=== PATIENT | male | born 1935 | race Asian ===

== ENCOUNTER 2016-09-15 07:12 | Inpatient (IN) | payer MEDICARE ==
[~2016-09-15] VITALS: Ht 177.8 cm; Wt 83.5 kg
[2016-09-15] VITALS (13 sets, daily range): BP systolic 87–149; BP diastolic 28–95
[2016-09-15] MEDS ORDERED: METO-304 PO (07:45)
[2016-09-15] MEDS ORDERED: HYDR25TA4 PO (07:45)
[2016-09-15] MEDS ORDERED: RIVA10TA PO (07:45)
[2016-09-15] MEDS ORDERED: ACET1TAB12 PO (07:45)
[2016-09-15] MEDS ORDERED: TAMS0.4C34 PO (07:45)
[2016-09-15] MEDS ORDERED: FAMOTIDINE. 20 MG/2 ML VIAL IV ONE ×2 (07:45→08:00)
[2016-09-15] MEDS ORDERED: TIMO5DRO31 (07:45)
--- NOTE | 2016-09-15 07:47 | NUR ---
PT IS IN ROOM #1B. DR HAMILTON EVALUATED THE PT.
[2016-09-15 08:09] LABS: BASOPHILS % (AUTO) 0.1 % (0.0-2.0); EOSINOPHILS # (AUTO) 0.1 K/uL (0.0-0.7); EOSINOPHILS % (AUTO) 0.6 % (0.0-7.0); HEMOGLOBIN 15.4 G/DL (14.0-18.0); LYMPHOCYTES % (AUTO) 11.6 % (20.5-51.5); MEAN CORPUSCULAR HEMOGLOBIN 29.8 UUG (27.0-31.0); MEAN CORPUSCULAR HGB CONC 34 g/dL (32.0-37.0); MONOCYTES # (AUTO) 0.7 K/UL (0.1-1.30); MONOCYTES % (AUTO) 7.7 % (0.0-11.0); PLATELET COUNT (AUTO) 160 K/UL (150-450); RED BLOOD CELL COUNT(AUTO) 5.17 MIL/UL (4.7-6.1); WHITE BLOOD COUNT (AUTO) 8.8 K/UL (4.0-11.2)
[2016-09-15 08:25] LABS: ALANINE AMINOTRANSFERASE 17 U/L (16-63); ALKALINE PHOSPHATASE 53 U/L (50-136); ASPARTATE AMINOTRANSFERASE 29 U/L (15-37); BILIRUBIN,DIRECT 0.6 mg/dL (0.0-0.2); BILIRUBIN,TOTAL 2.2 mg/dL (0.2-1.0); CARBON DIOXIDE 21 mmol/L (21-32); CREATININE 0.9 mg/dL (0.6-1.3); GLUCOSE 128 mg/dL (74-106); TOTAL PROTEIN, SERUM 6.5 g/dL (6.4-8.2); UREA NITROGEN, BLOOD 23 mg/dL (7-18)
[2016-09-15 08:29] LABS: POTASSIUM 4.3 mmol/L (3.5-5.1)
[2016-09-15 08:33] LABS: CHLORIDE 75 mmol/L (98-107)
[2016-09-15] MEDS ORDERED: IV NS 1000 ML 1,000 ML IV ONE (09:00)
[2016-09-15] MEDS ORDERED: IV SODIUM CHLORIDE 3% 500 ML IV ONE (09:45)
[2016-09-15] MEDS ORDERED: IV SODIUM CHLORIDE 3% 500 ML IV SCH ×3 (09:45→18:35)
--- NOTE | 2016-09-15 10:11 | NUR ---
PT WAS RE-EVALUATED BY DR HAMILTON. REPORT WAS GIVEN TO ASSOCIATE RESEARCH SCIENTIST . PT WAS TRANSFERED TO CCU ROOM #4.
[2016-09-15] MEDS ORDERED: LIDOCAINE 2% (UROJET) 10 ML JELLY MM PRN (10:30)
[2016-09-15 10:44] LABS: *BILIRUBIN,URIN NEGATIVE (NEGATIVE); *BLOOD, URINE Trace-intact (NEGATIVE); *CLARITY,URINE CLEAR (CLEAR); *COLOR,URINE YELLOW (YELLOW); *KETONES,URINE 1+ (NEGATIVE); *PROTEIN,URINE 1+ (NEGATIVE); LEUKOCYTE ESTERASE ,URINE NEGATIVE (NEGATIVE); NITRITE, URINE NEGATIVE (NEGATIVE)
--- NOTE | 2016-09-15 11:01 | NUR ---
At this time patient brought in from ER. awake alert restless extremely agitated. and with IV to left hand infiltrated and non-functioning. Attempts to establish a new line done at this time and after x2 attempts a G20 to RFA inserted.
[2016-09-15 11:02] LABS: UGLUCOSE 1+ (NEGATIVE)
[2016-09-15 11:05] LABS: BACTERIA,URINE FEW /HPF (NONE SEEN); SQUAMOUS EPITHELIAL CELL,UR FEW /HPF (NONE SEEN); WBC,URINE 0-3 /HPF (0-3)
--- NOTE | 2016-09-15 11:15 | NUR ---
Dr. Vernon called to be notified of pt's admission and condition. Orders received. Pt's daughter Ms. Velazquez at bedside all the time.
[2016-09-15] MEDS: LORAZEPAM 2 MG/1 ML VIAL IV PRN ×2 (11:56→19:49)
[2016-09-15] MEDS ORDERED: ONDANSETRON 4 MG/2 ML VIAL IV PRN (12:00)
[2016-09-15] MEDS ORDERED: ACETAMINOPHEN 325 MG TABLET PO PRN (12:00)
--- NOTE | 2016-09-15 12:08 | NUR ---
At this time Dr. Vernon called for clarification orders, and to informed him of pt's daughter desire to have patient to be DNR, DNI.
[2016-09-15] MEDS ORDERED: IV SODIUM CHLORIDE 3% 500 ML IV PRN (12:15)
[2016-09-15] MEDS: MORPHINE SULFATE 2 MG/1 ML DISP.SYRIN IV PRN ×2 (15:36→20:18)
[2016-09-15 16:35] LABS: CARBON DIOXIDE 22 mmol/L (21-32); CREATININE 0.9 mg/dL (0.6-1.3); GLUCOSE 94 mg/dL (74-106); POTASSIUM 4.2 mmol/L (3.5-5.1); UREA NITROGEN, BLOOD 22 mg/dL (7-18)
[2016-09-15 16:40] LABS: CHLORIDE 80 mmol/L (98-107)
--- NOTE | 2016-09-15 17:00 | NUR ---
A call from Dr. Vernon and orders to continue with Na chloride hypertonic solution 3% for another 6 hours received.
--- NOTE | 2016-09-15 17:33 | NUR ---
A call to Dr. Vernon to notify him that pt's daughter Ms. Kimble Kendra in the unit and wanted to be updated by Him. A call back from and Jessica Lamin informed of Dr. CABALLERO. She stated "Ill wait for him".
[2016-09-15] MEDS: RIVAROXABAN 10 MG TABLET PO SCH (17:52)
--- NOTE | 2016-09-15 18:01 | NUR ---
Patient unable to swallow xarelto daughter at bedside. Patient drink the water and ate ice dhips but refuse to drink pill.
--- NOTE | 2016-09-15 19:25 | NUR ---
RECEIVED PT; A/O X1 CONFUSED AND RESTLESS; ATTEMPTING TO CLIMB OUT OF BED; PT ON CARDIAC MONITORING SHOWING AFIB WITH RVR; PT ON 2LNC O2 THERAPY ;SPO2>93%. PT HAS A FC DRAINING CHRISTOS URINE; PT RECEIVING 3% HYPERTONIC SOLUTION AT 40 ML/HR. ABRASION ON THE RT ELBOW AND PURPLE BRUISE ON THE RT FLANK. PT ON AIR MATTRESS, DEFLATED AT THIS TIME PER FALL PRECAUTIONS.
--- NOTE | 2016-09-15 20:45 | NUR ---
PT APPEARS CALM AND RESTING AT THIS TIME; MITTENS MAINTAINED FOR SAFETY; AIR MATTRESS REINFLATED FOR SKIN PROTECTION; FALL PRECAUTIONS OBSERVED
[2016-09-15] MEDS: TAMSULOSIN HCL 0.4 MG CAP.SR.24H PO SCH (21:00)
[2016-09-15] MEDS: DOCUSATE SODIUM 100 MG CAPSULE PO SCH (21:00)
[2016-09-15 21:35] LABS: CARBON DIOXIDE 24 mmol/L (21-32); CHLORIDE 84 mmol/L (98-107); CREATININE 0.9 mg/dL (0.6-1.3); GLUCOSE 93 mg/dL (74-106); POTASSIUM 3.6 mmol/L (3.5-5.1); UREA NITROGEN, BLOOD 20 mg/dL (7-18)
[2016-09-16] VITALS (20 sets, daily range): BP systolic 85–140; BP diastolic 58–107
[2016-09-16] MEDS: IV NS 1000 ML 1,000 ML IV PRN ×2 (00:17→17:24)
--- NOTE | 2016-09-16 05:54 | NUR ---
PT RESTED WELL THROUGHOUT NIGHT; NO BOUTS OF RESTLESSNESS AND AGITATION OBSERVED
[2016-09-16 05:57] LABS: BASOPHILS % (AUTO) 0.3 % (0.0-2.0); EOSINOPHILS # (AUTO) 0.1 K/uL (0.0-0.7); EOSINOPHILS % (AUTO) 1.1 % (0.0-7.0); HEMOGLOBIN 16.9 G/DL (14.0-18.0); MEAN CORPUSCULAR HEMOGLOBIN 31.5 UUG (27.0-31.0); MEAN CORPUSCULAR HGB CONC 34 g/dL (32.0-37.0); MEAN CORPUSCULAR VOLUME 91.7 FL (82.0-92.0); MONOCYTES # (AUTO) 0.9 K/UL (0.1-1.30); MONOCYTES % (AUTO) 11.6 % (0.0-11.0); PLATELET COUNT (AUTO) 161 K/UL (150-450); RED BLOOD CELL COUNT(AUTO) 5.35 MIL/UL (4.7-6.1)
[2016-09-16 06:05] LABS: IRON, SERUM 232 ug/dL (50-175)
[2016-09-16 06:19] LABS: ALANINE AMINOTRANSFERASE 29 U/L (16-63); ALKALINE PHOSPHATASE 57 U/L (50-136); ASPARTATE AMINOTRANSFERASE 51 U/L (15-37); BILIRUBIN,TOTAL 2.3 mg/dL (0.2-1.0); CARBON DIOXIDE 27 mmol/L (21-32); CHLORIDE 89 mmol/L (98-107); CREATININE 1.1 mg/dL (0.6-1.3); GLUCOSE 77 mg/dL (74-106); PHOSPHOROUS 3.3 mg/dL (2.5-4.9); TOTAL PROTEIN, SERUM 6.8 g/dL (6.4-8.2); UREA NITROGEN, BLOOD 17 mg/dL (7-18); URIC ACID 3.7 mg/dL (3.5-7.2)
[2016-09-16 08:46] LABS: THYROID STIMULATING HORMONE 2.147 mIU/mL (0.358-3.740)
[2016-09-16] MEDS: PANTOPRAZOLE SODIUM 40 MG TABLET.DR PO SCH (08:48)
[2016-09-16] MEDS: MORPHINE SULFATE 2 MG/1 ML DISP.SYRIN IV PRN (14:52)
[2016-09-16 15:25] LABS: CARBON DIOXIDE 23 mmol/L (21-32); CHLORIDE 91 mmol/L (98-107); GLUCOSE 118 mg/dL (74-106); POTASSIUM 3.8 mmol/L (3.5-5.1); UREA NITROGEN, BLOOD 19 mg/dL (7-18)
[2016-09-16] MEDS: RIVAROXABAN 10 MG TABLET PO SCH (18:18)
--- NOTE | 2016-09-16 19:30 | NUR ---
Report received. Patient awake with limited verbal responses. Trying to get out of bed. Confused but cooperative; urinal offered. No void. Reoriented and placed on fall precautions. Bed alarm on, side rails up and frequent monitoring. NAD noted. Assessment completed. Addendum: 09/16/16 at 1074 by DMITRIY BRUNNER RN Amended: Links added.
--- NOTE | 2016-09-16 20:00 | NUR ---
Bilateral wrist restraints removed. Patient calm, reoriented PRN. C/o being cold. Blankets provided. Will continue to monitor closely. Addendum: 09/16/16 at 2302 by DMITRIY BRUNNER RN Amended: Links added.
--- NOTE | 2016-09-16 21:00 | NUR ---
Mildly restless, urinal offered. Not able to void while in bed. Assisted up at side of bed. Voided twila slight pink urine. Back to bed without problems. Addendum: 09/16/16 at 2305 by DMITRIY BRUNNER RN Amended: Links added.
[2016-09-16] MEDS: TAMSULOSIN HCL 0.4 MG CAP.SR.24H PO SCH (21:04)
[2016-09-16] MEDS: DOCUSATE SODIUM 100 MG CAPSULE PO SCH (21:04)
--- NOTE | 2016-09-16 21:30 | NUR ---
O2 dc'd. Sat on room air is above 94%. Addendum: 09/16/16 at 5593 by DMITRIY BRUNNER RN Amended: Links added.
--- NOTE | 2016-09-16 22:35 | NUR ---
Patient will transferred to 226. Message left to patient's daughter re: transfer and room number. Addendum: 09/16/16 at 2250 by DMITRIY BRUNNER RN Amended: Links added. Addendum: 09/16/16 at 2254 by DMITRIY BRUNNER RN Amended: Links added.
[2016-09-17] VITALS: BP 143/95
--- NOTE | 2016-09-17 | NUR ---
Mildly restless again; trying to get out of bed. Urinal offered. Assist up at side of bed; voided 300 ml of twila pink urine. Back to bed. Am care provided. Patient cooperative.
--- NOTE | 2016-09-17 01:00 | NUR ---
Patient sleeping. O2 sat maintaining above 94% on room air. Transferred to 226 per bed. NAD noted.
--- NOTE | 2016-09-17 01:25 | NUR ---
Report given to Tami AVALOS.
--- NOTE | 2016-09-17 01:35 | NUR ---
RECEIVED PATIENT FROM CCU. PATIENT IS LAYING COMFORTABLY IN BED. GREEN[place] SPEAKING WITH LITTLE [place]. ABLE TO NOD YES AND NO TO NEEDS. NO ACUTE DISTRESS NOTED. TELE SR. SAFETY INITIATED. CALL LIGHT WITHIN REACH.
[2016-09-17] MEDS: PANTOPRAZOLE SODIUM 40 MG TABLET.DR PO SCH (06:11)
[2016-09-17 06:35] VITALS: BP 158/98
[2016-09-17 07:08] LABS: BASOPHILS % (AUTO) 0.1 % (0.0-2.0); EOSINOPHILS # (AUTO) 0.1 K/uL (0.0-0.7); EOSINOPHILS % (AUTO) 1.3 % (0.0-7.0); HEMATOCRIT 45.8 % (40-50); HEMOGLOBIN 15.5 G/DL (14.0-18.0); LYMPHOCYTES # (AUTO) 1.9 K/UL (0.8-4.8); LYMPHOCYTES % (AUTO) 23.8 % (20.5-51.5); MEAN CORPUSCULAR HEMOGLOBIN 31.1 UUG (27.0-31.0); MEAN CORPUSCULAR HGB CONC 34 g/dL (32.0-37.0); MEAN CORPUSCULAR VOLUME 91.5 FL (82.0-92.0); MONOCYTES # (AUTO) 0.8 K/UL (0.1-1.30); MONOCYTES % (AUTO) 10.7 % (0.0-11.0); NEUTROPHILS % (AUTO) 64.1 % (38.5-71.5); PLATELET COUNT (AUTO) 154 K/UL (150-450); WHITE BLOOD COUNT (AUTO) 7.8 K/UL (4.0-11.2)
--- NOTE | 2016-09-17 07:30 | NUR ---
NO CHANGES T/O THE REST OF MY SHIFT. ALL COMFORT AND SAFETY MEASURES PROVIDED. NO ACUTE DISTRESS NOTED. ALL NEEDS MET. CALL LIGHT WITHIN REACH.
[2016-09-17 08:29] LABS: ALANINE AMINOTRANSFERASE 26 U/L (16-63); ALKALINE PHOSPHATASE 50 U/L (50-136); ASPARTATE AMINOTRANSFERASE 31 U/L (15-37); BILIRUBIN,TOTAL 1.6 mg/dL (0.2-1.0); CARBON DIOXIDE 22 mmol/L (21-32); CHLORIDE 94 mmol/L (98-107); GLUCOSE 104 mg/dL (74-106); MAGNESIUM 1.8 mg/dL (1.8-2.4); PHOSPHOROUS 3.2 mg/dL (2.5-4.9); POTASSIUM 3.3 mmol/L (3.5-5.1); TOTAL PROTEIN, SERUM 5.9 g/dL (6.4-8.2); UREA NITROGEN, BLOOD 17 mg/dL (7-18)
[2016-09-17 09:00] VITALS: BP 149/103
--- NOTE | 2016-09-17 09:00 | NUR ---
DR WU NOTIFIED OF HR 140-150 AFIB SUSTAINED WITH ORDERS
[2016-09-17] MEDS ORDERED: POTASSIUM CHLORIDE 20 MEQ POWDER PACKET PO ONE (09:30)
[2016-09-17] MEDS ORDERED: METOPROLOL SUCCINATE XL 50 MG TAB.SR.24H PO SCH (09:45)
[2016-09-17] MEDS: IV NS 1000 ML 1,000 ML IV PRN (10:05)
--- NOTE | 2016-09-17 12:00 | NUR ---
HR SUSTAINING AT 80-90 AFIB. PT DENIES CP OR SOB
[2016-09-17 15:45] LABS: ALANINE AMINOTRANSFERASE 26 U/L (16-63); ALKALINE PHOSPHATASE 68 U/L (50-136); ASPARTATE AMINOTRANSFERASE 28 U/L (15-37); BILIRUBIN,TOTAL 1.3 mg/dL (0.2-1.0); CARBON DIOXIDE 21 mmol/L (21-32); CHLORIDE 93 mmol/L (98-107); GLUCOSE 176 mg/dL (74-106); POTASSIUM 4.5 mmol/L (3.5-5.1); TOTAL PROTEIN, SERUM 6.2 g/dL (6.4-8.2); UREA NITROGEN, BLOOD 21 mg/dL (7-18)
[2016-09-17 15:56] VITALS: BP 148/103
[2016-09-17 15:59] VITALS: BP 148/103
--- NOTE | 2016-09-17 16:00 | NUR ---
DR WU NOTIFIED OF LAB RESULTS WITH ORDERS, DISCHARGE HOME AND CONTINUE ALL HOME MEDS EXCEPT HYDROCHLORTHIAZIDE
--- NOTE | 2016-09-17 17:09 | NUR ---
DISCHARGE HOME STABLE WITH HOME MEDS AND FOLLOW-UP INSTRUCTION WITH PROPULSION ENGINEER AND MECHANICAL ESTIMATOR
[2016-09-18] MEDS ORDERED: METOPROLOL TARTRATE 50 MG TABLET PO SCH (09:00)
== END 2016-09-17 17:30 | disposition home or self-care (01) | DRG 643 ==
LOC: ER 07:12 → CCU 10:05 → MED 09-17 01:00 → TELE 09-17 01:10
PROVIDERS: ADMIT Internal Medicine; ATTEND Internal Medicine
DX: E22.2 Syndrome of inappropriate secretion of antidiuretic hormone (principal); G93.40 Encephalopathy, unspecified; K27.4 Chronic or unspecified peptic ulcer, site unspecified, with hemorrhage; G91.2 (Idiopathic) normal pressure hydrocephalus; J98.11 Atelectasis; D68.59 Other primary thrombophilia; R17 Unspecified jaundice; Z87.891 Personal history of nicotine dependence; I48.2 Chronic atrial fibrillation; Z87.11 Personal history of peptic ulcer disease; R04.0 Epistaxis; R29.6 Repeated falls; Z79.01 Long term (current) use of anticoagulants; N40.0 Benign prostatic hyperplasia without lower urinary tract symptoms; E11.9 Type 2 diabetes mellitus without complications; T50.2X5A Adverse effect of carbonic-anhydrase inhibitors, benzothiadiazides and other diuretics, initial encounter; Y92.009 Unspecified place in unspecified non-institutional (private) residence as the place of occurrence of the external cause; I70.0 Atherosclerosis of aorta; J32.0 Chronic maxillary sinusitis; K57.30 Diverticulosis of large intestine without perforation or abscess without bleeding; E11.649 Type 2 diabetes mellitus with hypoglycemia without coma; I10 Essential (primary) hypertension; I50.9 Heart failure, unspecified; I25.10 Atherosclerotic heart disease of native coronary artery without angina pectoris; Z74.09 Other reduced mobility; I67.2 Cerebral atherosclerosis; I35.1 Nonrheumatic aortic (valve) insufficiency; G93.89 Other specified disorders of brain; I71.2 Thoracic aortic aneurysm, without rupture; Z79.899 Other long term (current) drug therapy
CPT/HCPCS: 36415; 51702; 70030-TC; 70450; 71010; 82533; 83550; 83605; 83735; 84100; 84300; 84443; 84550; 85025; 85730; 86850; 86900; 86901; 87040; 87086; 93005; 93307; 97161; A4663; J2060; J2270; J3490; J7030